=== PATIENT | female | born 1980 | race Two or more races ===

== ENCOUNTER 2019-09-08 16:23 | Emergency (ER) | payer SELFPAY ==
[~2019-09-08] VITALS: Ht 152.4 cm; Wt 63.0 kg
--- NOTE | 2019-09-08 16:42 | NUR ---
RESPIRATORY CLINICIAN: BRIEF EXAM BY DR MURPHY, NO CODE NEURO AT THIS TIME.
--- NOTE | 2019-09-08 17:06 | NUR ---
BREAK RN: THIS IS A 39 YEAR OLD FEMALE WHO FAMILY STATES, "SHE IS POSSIBLE GETTING A STROKE, SHE STARTED LOOSING AIR, GOT UP AND STARTED GETTING COLD AND THEN FACE AND TONGUE STARTED GETTING NUMB" BEGAN ABOUT 2 HOURS AGO" EQUAL CONTAINERS SALES REPRESENTATIVE, STRENGTH, GAIT STEADY. DISCUSED PLAN OF CARE WITH PATIENT AND FAMILY, OBTAINED URINE, SENT TO LAB. PT VERBALIZED NO NEEDS AT THIS TIME.
[2019-09-08 18:00] LABS: CULTURE INDICATED? YES; MICROSCOPIC INDICATED
--- NOTE | 2019-09-08 18:05 | NUR ---
PT STATES SHE'S FEELING OKAY, DENIES NEEDS AT THIS TIME. MULTIPLE FAMILY MEMBERS AT BS.
[2019-09-08 18:07] LABS: ANION GAP 4 mmol/L (5-15); CALCIUM 9.2 mg/dL (8.5-10.1); CHLORIDE 109 mmol/L (98-107); CREATININE 0.73 mg/dL (0.55-1.02)
[2019-09-08 19:10] LABS: BASOPHILS # (AUTO) 0.07 x10^3/uL (0-0.1); BASOPHILS % (AUTO) 1 % (0-1); EOSINOPHILS # (AUTO) 0.01 x10^3/uL (0-0.4); EOSINOPHILS % (AUTO) 0 % (1-7); LYMPHOCYTES # (AUTO) 1.19 x10^3/uL (1-3.4); LYMPHOCYTES % (AUTO) 10 % (22-44); MD NO; MEAN CORPUSCULAR HEMOGLOBIN 31.3 pg (27.0-34.8); MEAN CORPUSCULAR HGB CONC 33.1 g/dL (32.4-35.8); MEAN CORPUSCULAR VOLUME 94.8 fL (80-100); MONOCYTES # (AUTO) 0.64 x10^3/uL (0.2-0.8); MONOCYTES % (AUTO) 6 % (2-9); NEUTROPHILS % (AUTO) 83 % (42-75); PLATELET COUNT 148 x10^3/uL (130-400); RED BLOOD COUNT 4.42 x10^6/uL (3.82-5.3); RED CELL DISTRIBUTION WIDTH 13.1 % (9.6-15.2)
--- NOTE | 2019-09-08 19:27 | NUR ---
ERP AT FOR RECHECK.
[2019-09-08] MEDS ORDERED: NITROFURANTOIN (MACROBID) 100 MG CAPSULE ONE (19:29)
[2019-09-08] MEDS ORDERED: NITROFURANTOIN (MACROBID) 100 MG CAPSULE PO ONE (19:30)
[2019-09-08 19:32] VITALS: BP 106/63
--- NOTE | 2019-09-08 19:32 | NUR ---
PT MEDICATED PER ORDERS. D/C INSTRUCTIONS, MEDS & F/U APPT RV'WD WITH PT, SHE VERBALIZES UNDERSTANDING. RX GIVEN X1. INSTRUCTED PT TO RETURN TO ED FOR ANY CONCERNING SYMPTOMS. PT AMBULATED OUT OF ED WITH FAMILY WITHOUT DIFFICULTY.
== END 2019-09-08 19:34 | disposition home or self-care (01) ==
LOC: ED 19:30
DX: R55 Syncope and collapse (principal); N30.00 Acute cystitis without hematuria; R06.02 Shortness of breath; R42 Dizziness and giddiness; R20.0 Anesthesia of skin
CPT/HCPCS: 36415; 80048; 81001; 85025; 87077; 87086; 87186; 93005; 99283